=== PATIENT | male | born 1930 | race Caucasian/White ===

== ENCOUNTER 2016-06-23 08:08 | Day surgery (SDC) | payer MEDICARE ==
[~2016-06-23 08:08] MED LIST: FIBE500T PO
[2016-06-23 08:35] VITALS: BP 148/90; PULSE 82; RESP 20; TEMP 96; O2SAT 97
[2016-06-23] MEDS: SODIUM CHLORID 0.9% 500 ML INJ 500 ML IV SCH ×2 (09:00→11:20)
[2016-06-23] MEDS ORDERED: IOHEXOL 350 MG/ML 10 ML VIAL (for RAD DIAG) IV ONE (11:13)
--- NOTE | 2016-06-23 13:14 | RADRPT ---
EXAM DATE/TIME: 06/23/2016 10:54 [facility] COMPARISON: No previous studies available for comparison. INDICATIONS : AAA post surgical repair. IV CONTRAST: 100 cc Omnipaque 350 (iohexol) IV RADIATION DOSE: 3.52 CTDIvol (mGy) MEDICAL HISTORY : Renal failure, chronic. SURGICAL HISTORY : Cholecystectomy. Umbilical hernia repair. ENCOUNTER: Initial ACUITY: 1 day PAIN SCALE: 0/10 LOCATION: Abdomen. TECHNIQUE: Volumetric scanning was performed using a multi-row detector CT scanner. The data was post processed with a variety of visualization algorithms including full volume maximum intensity projection, multi -planar sliding thin slab reformation, curved planar reformation, and surface rendering techniques. Using automated exposure control and adjustment of the mA and/or kV according to patient size, radiat ion dose was kept as low as reasonably achievable to obtain optimal diagnostic quality images. FINDINGS: ABDOMINAL AORTA: A modular bifurcated aortic stent graft is noted in place. Tu is most sac of an infrarenal abdomin al aortic aneurysm is identified it measures 5.9 x 5.2 cm in diameter. There is no evidence of endole ak. BIFURCATION: Stented RIGHT PELVIS: The right common iliac, internal iliac, and external iliac vessels are patent without luminal irregul arity. LEFT PELVIS: The left common iliac, internal iliac, and external iliac vessels are patent and without luminal irre gularity. RIGHT THIGH: Eccentric calcified plaque is identified in the common femoral artery. There is no significant stenos is. The superficial femoral and profunda vessels are patent without luminal irregularity. LEFT THIGH: Eccentric calcified plaque is identified in the common femoral artery. There is no significant stenos is. The superficial femoral and profunda vessels are patent without luminal irregularity. RIGHT KNEE: The distal superficial femoral artery is patent. The popliteal artery demonstrates very faint opacifi cation below the knee with suspected high-grade distal popliteal artery stenosis or occlusion. There is no significant opacification of vessel below this area. LEFT KNEE: The distal femoral and popliteal arteries are patent without luminal irregularity. RIGHT LEG: Infrapopliteal arterial vessels are not opacified. LEFT LEG: Moderate described disease involving the left infrapopliteal vessels with significant narrowing below the mid calf. CONCLUSION: Distal right popliteal high-grade stenosis versus occlusion with nonopacified infrapopliteal vessels indicating very poor runoff. 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 Aortic stent graft following aortic aneurysm repair; no evidence of endoleak. No evidence of significant aortoiliac or femoral inflow disease. Nonvascular findings include bilateral renal cysts and extensive colonic diverticulosis without evide nce of active inflammation. Home Gonzalez MD on June 23, 2016 at 13:05 Board Certified Radiologist. This report was verified electronically.
[2016-06-23 13:20] VITALS: BP 116/80; PULSE 66; RESP 18; O2SAT 96
== END 2016-06-23 13:30 | disposition home or self-care (01) ==
LOC: HRAD 08:08 → HRIP 08:09 → EDSTATUS 09:00 → HRAD 13:30
PROVIDERS: ATTEND Surgery Vascular Surgery
DX: I71.4 Abdominal aortic aneurysm, without rupture (principal); N28.1 Cyst of kidney, acquired; K57.30 Diverticulosis of large intestine without perforation or abscess without bleeding; N18.9 Chronic kidney disease, unspecified
CPT/HCPCS: 75635; 82565; 84520; 96365; 96366; J7040; Q9967

== ENCOUNTER 2016-07-06 13:21 | Emergency (ER) | payer MEDICARE ==
[~2016-07-06] VITALS: Ht 172.7 cm; Wt 80.6 kg
[2016-07-06 13:24] VITALS: BP 108/75; PULSE 73; RESP 16; TEMP 97.5; O2SAT 93
[2016-07-06 14:01] LABS: AUTOMATED NEUTROPHIL # 12.7 TH/MM3 (1.8-7.7); BASOPHIL % 0.2 % (0.0-2.0); EOSINOPHIL # 0.1 TH/MM3 (0-0.4); HEMATOCRIT 41.8 % (39.0-51.0); LYMPH % 4.6 % (9.0-44.0); LYMPHOCYTE # 0.7 TH/MM3 (1.0-4.8); MEAN CELL VOLUME 88.5 FL (80.0-100.0); MEAN CORPUSCULAR HEMOGLOBIN 28.5 PG (27.0-34.0); MEAN CORPUSCULAR HGB CONC 32.2 % (32.0-36.0); MONO % 8.2 % (0.0-8.0); PLATELET COUNT 319 TH/MM3 (150-450); RED BLOOD COUNT 4.72 MIL/MM3 (4.50-5.90); RED CELL DISTRIBUTION WIDTH 14.4 % (11.6-17.2); WHITE BLOOD COUNT 14.7 TH/MM3 (4.0-11.0)
[2016-07-06 14:08] LABS: HEMO FLAGS DIFF FINAL
[2016-07-06 14:15] LABS: CHLORIDE 104 MEQ/L (98-107); POTASSIUM 3.7 MEQ/L (3.5-5.1); SODIUM (NA) 139 MEQ/L (136-145)
[2016-07-06 14:18] LABS: ANION GAP 10 MEQ/L (5-15); BICARBONATE 24.7 MEQ/L (21.0-32.0)
[2016-07-06 14:19] LABS: BLOOD UREA NITROGEN 21 MG/DL (7-18)
[2016-07-06 14:20] LABS: APTT (PATIENT) 29.4 SEC (24.3-30.1); INTERNATIONAL NORMALIZED RATIO 1.1 RATIO; PROTHROMBIN TIME - PATIENT 12.6 SEC (9.8-11.6)
[2016-07-06 14:21] LABS: ALT (GPT) 16 U/L (12-78)
[2016-07-06 14:22] LABS: AST (GOT) 18 U/L (15-37); GLOMERULAR FILTRATION RATE 48 ML/MIN (>89)
[2016-07-06 14:23] LABS: TOTAL BILIRUBIN ADULT 1.1 MG/DL (0.2-1.0)
[2016-07-06 14:24] LABS: ALKALINE PHOSPHATASE 84 U/L (45-117)
--- NOTE | 2016-07-06 14:37 | RADHPO ---
EXAM DATE/TIME: 07/06/2016 14:18 [facility] COMPARISON: No previous studies available for comparison. INDICATIONS : Short of breath MEDICAL HISTORY : None. SURGICAL HISTORY : None. ENCOUNTER: Initial ACUITY: 2 days PAIN SCORE: 2/10 LOCATION: Bilateral buttock FINDINGS: A single view of the chest demonstrates the lungs to be symmetrically aerated without evidence of mas s, infiltrate or effusion. The cardiomediastinal contours are unremarkable. Osseous structures are intact. CONCLUSION: No acute disease. Benson Liu MD FACR on July 06, 2016 at 14:35 Board Certified Radiologist. This report was verified electronically.
--- NOTE | 2016-07-06 14:46 | PD ---
HPI Chief Complaint: Edema Time Seen by Provider: 13:34 Travel History International Travel<30 days: No Contact w/Intl Traveler<30days: No Traveled to known affect area: No History of Present Illness HPI Is an 85-year-old man who presents to the emergency department referred in for a right femoral DVT. Ultrasounds performed by Dr. Chahal, who recently did the patient's endovascular AAA repair. A left-sided DVT in the past. He was treated with Xarelto. He was doing well until several days ago he started to develop worsening right calf pain and swelling. He also had an episode of chest pain and lightheadedness several days ago that resolved. Since that time he has not had any recurrent episodes. He otherwise has been feeling generally well and healthy. Denies any other recent illness or injury. States he did well on Xarelto in the past, but did not have any blood in his stool, bruising, or trouble with falls. History Past Medical History Narrative Medical AAA status post endovascular repair Chronic kidney disease Social History Alcohol Use: Yes (0-4-5/WEEK.) Tobacco Use: No Allergies-Medications (Allergen,Severity, Reaction): Coded Allergies: Penicillin (Verified Allergy, Severe, RASH, 07/06/16) Reported Meds & Prescriptions Reported Meds & Active Scripts Active No Active Prescriptions or Reported Medications Review of Systems Except as stated in HPI: all other systems reviewed are Neg Physical Exam Narrative GENERAL: Well-appearing 85 year-old woman, no acute distress. SKIN: Warm and dry. NECK: Trachea midline. No JVD. CARDIOVASCULAR: Regular rate and rhythm. No murmur appreciated. RESPIRATORY: No accessory muscle use. Clear to auscultation. Breath sounds equal bilaterally. GASTROINTESTINAL: Abdomen soft, non-tender, nondistended. Hepatic and splenic margins not palpable. MUSCULOSKELETAL: No obvious deformities. Some asymmetric edema and swelling in the right lower extremity. Good pulses. NEUROLOGICAL: Awake and alert. No obvious cranial nerve deficits. Motor grossly within normal limits. Normal speech. PSYCHIATRIC: Appropriate mood and affect; insight and judgment normal. Data Data Last Documented VS Vital Signs Date Time Temp Pulse Resp B/P Pulse Ox O2 Delivery O2 Flow Rate FiO2 07/06/16 15:28 67 16 112/71 94 Room Air 07/06/16 13:24 97.5 Orders Complete Blood Count With Diff (07/06/16 13:52) Comprehensive Metabolic Panel (07/06/16 13:52) Act Partial Throm Time (Ptt) (07/06/16 13:52) Prothrombin Time / Inr (Pt) (07/06/16 13:52) Iv Access Insert/Monitor (07/06/16 13:52) Electrocardiogram (07/06/16 ) Chest, Single Ap (07/06/16 ) Ventilation & Perfusion Scan (07/06/16 ) Labs Laboratory Tests Test 07/06/16 13:40 White Blood Count 14.7 TH/MM3 Red Blood Count 4.72 MIL/MM3 Hemoglobin 13.4 GM/DL Hematocrit 41.8 % Mean Corpuscular Volume 88.5 FL Mean Corpuscular Hemoglobin 28.5 PG Mean Corpuscular Hemoglobin 32.2 % Concent Red Cell Distribution Width 14.4 % Platelet Count 319 TH/MM3 Mean Platelet Volume 7.9 FL Neutrophils (%) (Auto) 86.0 % Lymphocytes (%) (Auto) 4.6 % Monocytes (%) (Auto) 8.2 % Eosinophils (%) (Auto) 1.0 % Basophils (%) (Auto) 0.2 % Neutrophils # (Auto) 12.7 TH/MM3 Lymphocytes # (Auto) 0.7 TH/MM3 Monocytes # (Auto) 1.2 TH/MM3 Eosinophils # (Auto) 0.1 TH/MM3 Basophils # (Auto) 0.0 TH/MM3 CBC Comment DIFF FINAL Differential Comment Prothrombin Time 12.6 SEC Prothromb Time International 1.1 RATIO Ratio Activated Partial 29.4 SEC Thromboplast Time Sodium Level 139 MEQ/L Potassium Level 3.7 MEQ/L Chloride Level 104 MEQ/L Carbon Dioxide Level 24.7 MEQ/L Anion Gap 10 MEQ/L Blood Urea Nitrogen 21 MG/DL Creatinine 1.40 MG/DL Estimat Glomerular Filtration 48 ML/MIN Rate Random Glucose 140 MG/DL Calcium Level 8.9 MG/DL Total Bilirubin 1.1 MG/DL Aspartate Amino Transf 18 U/L (AST/SGOT) Alanine Aminotransferase 16 U/L (ALT/SGPT) Alkaline Phosphatase 84 U/L Total Protein 7.1 GM/DL Albumin 2.5 GM/DL [facility] Medical Decision Making Medical Screen Exam Complete: Yes Emergency Medical Condition: Yes Interpretation(s) LABS: CBC remarkable for mild leukocytosis. CMP is remarkable for chronic kidney disease, creatinine 1.4, GFR 48 Coags are unremarkable Chest x-rays negative VQ is low probability for PE. Differential Diagnosis PE, DVT, kidney disease, other Narrative Course Medical decision making INITIAL: 85-year-old man with a known right femoral DVT on outpatient imaging. I spoke to Dr. Schultz. Reviewed the imaging with Dr. Chaahl. Patient had on Xarelto without difficulty in the past. There was some concern because this episode that he had that he may have had a PE. He has baseline chronic kidney disease with a GFR below 60. We'll recommend VQ scan, discharge if negative. Diagnosis Primary Impression: Right femoral vein DVT Qualified Code: I82.411 - Acute deep vein thrombosis (DVT) of femoral vein of right lower extremity Additional Instructions: Take Xarelto as prescribed. Follow-up with Dr. Schultz in the next one to 2 days. Return to the emergency department for any bleeding, if you to your head, any dark black stools or blood in her stools, any worsening leg swelling, any trouble breathing, or any other new or worsening symptoms. Med/Other Pt SpecificInfo: Prescription(s) given Scripts Rivaroxaban (Xarelto)15 Mg Tab15 Mg PO Q12HR 21 Days Ref 0 Prov:Michael Sheehan MD 07/06/16 Disposition: 01 DISCHARGE HOME Condition: Stable Michael Sheehan MD Jul 06, 2016 14:46
[2016-07-06 15:28] VITALS: BP 112/71; PULSE 67; RESP 16; O2SAT 94
--- NOTE | 2016-07-06 16:52 | RADHPO ---
EXAM DATE/TIME: 07/06/2016 16:34 [facility] COMPARISON: CHEST SINGLE AP, July 06, 2016, 14:18. INDICATIONS : Dyspnea with deep vein thrombosis. DOSE: 8.8 mCi Tc99m MAA IV 0.9 mCi Tc99m DTPA aerosol MEDICAL HISTORY : Melanoma. SURGICAL HISTORY : Abdominal aortic aneurysm repair. Cholecystectomy. Umbilical hernia repair. ENCOUNTER: Initial ACUITY: 1 day PAIN SCALE: 0/10 LOCATION: Chest. TECHNIQUE: Following five minutes of tidal breathing of DTPA aerosol, planar images of the lungs were performed in eight projections. The patient was then injected with MAA, and eight-view perfusion scan was perf ormed. FINDINGS: There is a homogeneous pattern of aerosol delivery to the periphery of both lungs. No focal ventilat ory defects are seen. The perfusion lung scan demonstrates a homogenous pattern of uptake in both lungs. No segmental or s ubsegmental defects are seen. CONCLUSION: 1. Low probability of pulmonary embolism. Santiago Salcedo MD on July 06, 2016 at 16:47 Board Certified Radiologist. This report was verified electronically.
[2016-07-06] MEDS ORDERED: XARE15TA PO (16:57)
[2016-07-06] MEDS ORDERED: RIVAROXABAN 15 MG TAB PO STA (16:57)
[2016-07-06 17:02] VITALS: BP 101/73
--- NOTE | 2016-07-08 07:56 | EKG ---
Date Performed: 07/06/2016 Time Performed: 14:09:40 PTAGE: 85 years EKG: Sinus rhythm Inferior and anterior T wave changes are nonspecific Borderline ECG Compared to PREVIOUS TRACING , the anteroseptal T-wave changes are new. Clinical correlation is recom mended. PREVIOUS TRACIN03/19/2016 07.53 DOCTOR: Aracelis Johnson Interpretating Date/Time 07/08/2016 07:54:50
== END 2016-07-06 17:14 | disposition home or self-care (01) ==
LOC: PHED 13:21
DX: I82.411 Acute embolism and thrombosis of right femoral vein (principal); N18.9 Chronic kidney disease, unspecified; R06.02 Shortness of breath
CPT/HCPCS: 71010; 78582; 80053; 85025; 85610; 85730; 93005; 99284; A9540; A9567